=== PATIENT | female | born 1960 | race Two or more races ===

== ENCOUNTER 2024-04-16 13:51 | Emergency (ER) | payer OTHER, SELFPAY ==
--- NOTE | ~2024-04-16 | XR_ITS ---
EXAMINATION: X-ray bilateral knees CLINICAL INFORMATION: Fall COMPARISON: None TECHNIQUE: Left knee 4 views. Right knee 4 views. FINDINGS: Left knee: Alignment is anatomic. Joint spaces are maintained. No visible acute fracture or dislocation. No significant effusion. No suspicious soft tissue calcification. Right knee: Alignment is anatomic. Joint spaces are maintained. No visible acute fracture or dislocation. No significant effusion. No suspicious soft tissue calcification. XR/XR knee RT 4V IMPRESSION: No radiographic evidence of acute fracture or malalignment.
--- NOTE | ~2024-04-16 | XR_ITS ---
EXAMINATION: X-ray bilateral knees CLINICAL INFORMATION: Fall COMPARISON: None TECHNIQUE: Left knee 4 views. Right knee 4 views. FINDINGS: Left knee: Alignment is anatomic. Joint spaces are maintained. No visible acute fracture or dislocation. No significant effusion. No suspicious soft tissue calcification. Right knee: Alignment is anatomic. Joint spaces are maintained. No visible acute fracture or dislocation. No significant effusion. No suspicious soft tissue calcification. XR/XR knee LT 4V IMPRESSION: No radiographic evidence of acute fracture or malalignment.
--- NOTE | ~2024-04-16 | XR_ITS ---
EXAMINATION: XR WRIST, RIGHT CLINICAL INFORMATION: Fall. COMPARISON: None available. TECHNIQUE: Three views of the right wrist. FINDINGS: There is a small chronic osseous fragment at the tip of the ulnar styloid. No fracture. Alignment is anatomic with normal joint spaces. No erosions or abnormal soft tissue calcifications. XR/XR wrist RT min 3V IMPRESSION: No acute fracture or malalignment.
--- NOTE | ~2024-04-16 | CT_ITS ---
EXAMINATION: CT HEAD WITHOUT CONTRAST CLINICAL INFORMATION: Fall. Head strike. COMPARISON: None available. TECHNIQUE: Contiguous axial imaging was performed from the skull base to vertex without intravenous administration of contrast. This CT examination was performed using dose optimization techniques as appropriate, variously including the following: *Automated exposure control *Adjustment of mA and/or kV according to patient size (this includes techniques or standardized protocols for targeted exams where dose is matched to indication/reason for exam; i.e. extremities or head) *Use of iterative reconstruction technique DLP: 718 mGy-cm FINDINGS: There is no evidence of acute intracranial hemorrhage or territorial infarction. No abnormal mass-effect or midline shift is seen. Wills to white matter differentiation is well preserved. No extra axial fluid collections. The ventricles are normal in size and configuration. There is no abnormal attenuation within the brain parenchyma. Minimal focal soft tissue swelling over the left supraorbital frontal bone. The soft tissues and osseous structures are otherwise normal. The sinuses and mastoid air cells are clear. CT/CT head/brain wo IV con IMPRESSION: No acute intracranial pathology. Minimal focal soft tissue swelling over the left supra orbital frontal calvarium. No fractures.
[2024-04-16 14:05] VITALS: BP 122/76; BP 128/70; PULSE 76; PULSE 78; RESP 18; TEMP 36.7; O2SAT 97; O2SAT 98; BMI 23.8
--- OUTSIDE RECORDS SUMMARY | 2024-04-16 14:23 | XMS_ITS | Continuity of Care Document ---
Author Organization [facility] Address [address] [place] [address]- Care Team Providers Care Sorting Grapple Operator Name Role Phone Reva Mix Primary Care Physician [phone] [facility] [id number] Date(s): 03/05/23 - 04/04/23 [facility] [address] [place], [place] [address] Attending Physician: Rin Norman Admitting Physician: Rin Norman Referring Physician: AdmtrRin Allergies, Adverse Reactions, Alerts Substance Reaction Severity Status predniSONE Active Medications Albuterol 0.083% Inhalation Solution Refills 0, Maintenance, 07/16/17 13:13:20 Start Date: 07/16/17 Status: Ordered amitriptyline 10 mg oral tablet 1 tablet = 10 mg, By Mouth, Daily at bedtime, 0 Refills, Maintenance Start Date: 10/07/12 Status: Ordered Flonase 50 mcg/inh nasal spray 1 sprays, Nares, Both, 2 times a day, # 16 Gm, 0 Refills, Maintenance, [place] Start Date: 02/02/13 Status: Ordered Flonase 50 mcg/inh nasal spray 1 sprays, Nares, Both, 2 times a day, # 16 Gm, 0 Refills, Maintenance, 05/27/18 15:29:38 EDT, [place] Start Date: 05/27/18 Status: Ordered melatonin 5 mg oral tablet 1 tablet = 5 mg, By Mouth, Daily at bedtime, PRN for insomnia, # 60 tablet, 0 Refills, Maintenance,09/16/16 14:09:46, Tablet Start Date: 09/16/16 Status: Ordered omeprazole 20 mg oral delayed release tablet 1 tablet = 20 mg, By Mouth, Daily, # 30 tablet, 0 Refills, Maintenance, 08/05/16 19:29:52, EC Tablet Start Date: 08/05/16 Status: Ordered ZyrTEC 10 mg oral tablet 1 tablet = 10 mg, By Mouth, Daily, 0 Refills, Maintenance, 10/22/17 15:16:48 Start Date: 10/22/17 Status: Ordered Social History Social History Type Response Smoking Status Never smoker entered on: 10/22/17 Sex Patient Care team information Care Team Personnel Name: Reva Mix Position: S Associate Professional Member Role: PCP Address: Address: [address] [place] [address] Care Team Related Persons Name: BROWN BRITO Address: home [address] [facility] [address] [place] [id number] Name: JOSE CRUZ ARMENTA Name: SHAMAR HEREDIA Address: home [address] [place] [address]
--- OUTSIDE RECORDS SUMMARY | 2024-04-16 14:23 | XMS_ITS | Continuity of Care Document ---
Author Organization [facility] Address [address] [place] [address]- Care Team Providers Care Motor Coach Driver Name Role Phone Reva Mix Primary Care Physician [phone] Encounter [facility] [id number] Date(s): 08/30/21 - 12/28/21 [facility] [address] [place] [address]- Attending Physician: Migel Stewart MD Admitting Physician: Migel Stewart MD Referring Physician: Reva Mix Allergies, Adverse Reactions, Alerts Substance Reaction Severity [...] day, # 16 Gm, 0 Refills, Maintenance, [place] Start Date: 02/02/13 Status: Ordered Flonase 50 mcg/inh nasal spray 1 sprays, Nares, Both, 2 times a day, # 16 Gm, 0 Refills, Maintenance, 05/27/18 15:29:38 EDT, [place] Start Date: 05/27/18 Status: Ordered melatonin 5 [...]
--- OUTSIDE RECORDS SUMMARY | 2024-04-16 14:23 | XMS_ITS | Continuity of Care Document ---
Author Organization [facility] Address [address] [place] [address]- Care Team Providers Care Web Production Designer Name Role Phone Reva Mix Primary Care Physician [phone] [id number] Date(s): 03/05/23 - 03/12/23 [facility] [address] [place], [place] [address] Attending Physician: Chauncey Ramos MD Referring Physician: Reva Mix Allergies, Adverse [...] day, # 16 Gm, 0 Refills, Maintenance, [place] Start Date: 02/02/13 Status: Ordered Flonase 50 mcg/inh nasal spray 1 sprays, Nares, Both, 2 times a day, # 16 Gm, 0 Refills, Maintenance, 05/27/18 15:29:38 EDT, [place] Start Date: 05/27/18 Status: Ordered melatonin 5 [...] 10/22/17 15:16:48 Start Date: 10/22/17 Status: Ordered Vital Signs Most recent to oldest [Reference Range]: 1 Height 173 cm (03/05/23 2:34 PM) Oxygen Saturation [94-100 %] 99 % (03/05/23 2:34 PM) Pulse Rate [55-90 bpm] 75 bpm (03/05/23 2:34 PM) Blood Pressure [90-138/55-84 mm Hg] 131/ 74mm Hg (03/05/23 2:34 PM) Respiratory Rate [16-30 br/min] 20 br/mi n (03/05/23 2:34 PM) Temperature [96.8-100.4 DegF] 97.2 DegF (03/05/23 2:34 PM) Mode of Delivery (Oxygen) Room air (03/05/23 2:34 PM) Blood pressure sites Arm, left (03/05/23 2:34 PM) Temperature Route Temporal (03/05/23 2:34 PM) Social History Social History Type Response Smoking Status Never smoker entered on: 10/22/17 Sex Note * Emi Squires: PERFORM, SIGN, VERIFY Event Display: Patient Education/Instruction Authored Date: [id number] [facility] *[facility] Clinical Summary Name RAMÍREZ SOTO Age 62 Years 1960 PCP Reva Mix PCP Visit Date 03/05/2023 13:28:00 Additional Instructions: Scheduled Appointments?? Future Appointments ?No Future Appointments Scheduled Follow-Up Instructions ?? Diagnosis Medications: Please continue your medications until treatment is completed or stopped by your provider. Discuss any questions related to medications with your provider. Medications to Continue with No Changes These medications were not printed or sent to your pharmacy Albuterol (Albuterol 0.083% Inhalation Solution) Next Dose: amiTRIPTYLINE (amitriptyline 10 mg oral tablet) 1 tab(s) Oral Daily at Bedtime. Next Dose: Cetirizine (ZyrTEC 10 mg oral tablet) 1 tab(s) Oral Daily. Next Dose: Fluticasone Nasal (Flonase 50 mcg/inh nasal spray) 1 spray(s) Nares, Both twice a day. Refills: 0. Next Dose: Fluticasone Nasal (Flonase 50 mcg/inh nasal spray) 1 spray(s) Nares, Both twice a day. Refills: 0. Next Dose: Melatonin (melatonin 5 mg oral tablet) 1 tab(s) Oral Daily at Bedtime as needed for insomnia. Next Dose: Omeprazole (omeprazole 20 mg oral delayed release tablet) 1 tab(s) Oral Daily. Refills: 0. Next Dose: Allergy Info:?? predniSONE Medications Given This Visit Future Orders ?No future orders Vital Signs Height 173 cm Weight BMI Blood Pressure 131 mm Hg/74 mm Hg Temperature 97.2 DegF Pulse Rate 75 bpm Respiratory Rate 20 br/min 02 Sat Mode of Delivery 99 %/Room air You can now view a summary of your hospital visit from the comfort of your home through a free online portal called [employer] (formerly known as Local[employer]). [employer] (formerly known as Local[employer]) is a website that allows you to securely view your medical information including discharge summary, medications and follow-up visits. ??You can alsosend a secure electronic message to your doctor???s office to request appointments, renew medications or just ask a question. You can enroll at [email or web address] or register during your next office visit. Disclaimer:?? The information provided is of a general nature and is intended to be used in conjunction with the recommendations and advice of your health care practitioner. ??Every effort has been made to ensure that the information provided is accurate and complete at the time it is provided to you however, as your needs change, or, as new ??information becomes available, different or additional instructions may be required. If you have questions, please consult with your primary care provider or pharmacist, as appropriate. ??This information is not intended to serve as substitution for assessment and evaluation by a qualified health care provider. If you do not have a primary care provider, you may find a [facility] provider by calling [facility] at [phone]. For information about the plan of care including goals and instructions for your diagnosis, please see the patient education orders section of this document. Patient Education Materials?? The content of this educational material or handout may have been modified, supplemented, or adapted from its original content and format to support your individualized medical care. Patient Care team information Care Team Personnel Name: Reva Mix Position: [facility] Associate Professional Member Role: PCP Address: Address: [address] [place] [address]- Care Team Related Persons Name: BROWN BRITO Address: home [address] [facility] [address] [place] [address] Name: JOSE CRUZ ARMENTA Name: SHAMAR HEREDIA Address: home [address] [place] [address]
--- OUTSIDE RECORDS SUMMARY | 2024-04-16 14:23 | XMS_ITS | Continuity of Care Document ---
Author Organization [facility] Address [address] [place] [address]- Care Team Providers Care Viscose Cellar Charge Hand Name Role Phone Reva Mix Primary Care Physician [facility] [id number] Date(s): 12/03/22 - 01/02/23 [facility] [address] [place] [address]- Attending Physician: Rin Norman Admitting Physician: Rin Norman Referring Physician: Rin Norman Allergies, Adverse Reactions, Alerts Substance Reaction Severity [...] day, # 16 Gm, 0 Refills, Maintenance, [place] Start Date: 02/02/13 Status: Ordered Flonase 50 mcg/inh nasal spray 1 sprays, Nares, Both, 2 times a day, # 16 Gm, 0 Refills, Maintenance, 05/27/18 15:29:38 EDT, [place] Start Date: 05/27/18 Status: Ordered melatonin 5 [...] Associate Professional Member Role: PCP Address: Address: [address] [place] [address]- Care Team Related Persons Name: BROWN BRITO Address: home [address] [place], [place] [id number] [place] [address] Name: JOSE CRUZ ARMENTA Name: SHAMAR HEREDIA Address: home [address] [place] [address]
--- OUTSIDE RECORDS SUMMARY | 2024-04-16 14:23 | XMS_ITS | Continuity of Care Document ---
Author Organization [facility] Address [address] [place] [address]- Care Team Providers Care Defence Intelligence Analyst Name Role Phone Reva Mix Primary Care Physician Encounter [facility] [id number] Date(s): 12/06/21 - 04/05/22 [facility] [address] [place] [address]- Attending Physician: Ulises Alonzo MD Admitting Physician: Ulises Alonzo MD Referring Physician: Reva Mix Allergies, Adverse [...] day, # 16 Gm, 0 Refills, Maintenance, [place] Start Date: 02/02/13 Status: Ordered Flonase 50 mcg/inh nasal spray 1 sprays, Nares, Both, 2 times a day, # 16 Gm, 0 Refills, Maintenance, 05/27/18 15:29:38 EDT, [place] Start Date: 05/27/18 Status: Ordered melatonin 5 [...]
[2024-04-16] MEDS: Acetaminophen 325 MG TABLET 975 MG PO (15:02)
--- NOTE | 2024-04-16 15:56 | ED.FALL ---
HPI - Fall General Chief Complaint: Fall Stated Complaint: FALL,+HS,BILAT KNEE PAIN,+COLLAR PER EMS Time Seen by Provider: 04/16/24 14:15 Source: patient, family, EMS and old records reviewed Mode of arrival: EMS Limitations: no limitations History of Present Illness ED Provider: DON HPI Narrative: 63 yo female with no sig PMH not on thinners here with c/o trip and fall did hit head has no neck pain no radicular symptoms landed on forehead and both wrists/knees. Denies other injury, no LOC, not vomiting. here with family. MD complaint: fall Onset (ago): minute(s) (ASSOCIATE DIRECTOR FINANCE) Fall from: standing Fall witnessed: yes, by bystander Place fall occurred: street Loss of consciousness: none Prolonged down time: no Symptoms prior to fall: none Context: tripped/slipped Location of injury: head Location of injury - extremities: right: hand and bilateral: knee Severity: mild Quality: dull Associated symptoms (after fall): denies Related Data Allergies Allergy/AdvReac Type Severity Reaction Status Date / Time prednisone Allergy Intermediate Stomach Verified 04/16/24 14:12 Upset Review of Systems Review of Systems: Constitutional : No Fever, No Chills ENT/Mouth : No Ear Pain, No Hoarseness, No sore throat Eyes: No Eye Pain, No Swelling, No Redness, No Foreign Body Cardiovascular : No Chest Pain, No SOB Respiratory : No Cough, No Dyspnea Gastrointestinal : No Nausea, No Vomiting, No Diarrhea, No abdominal Pain Genitourinary : No Dysuria, No Hematuria Musculoskeletal : positive joint pain, No Myalgias, No Joint Swelling Skin : No Skin lacerations, No rash, pos abrasions Neuro : No Weakness, No Numbness, No Loss of Consciousness, No Dizziness, No Headache Psych : No Anxiety/Panic, No Depression All other systems reviewed and are negative PMFSH Past Medical History Attestation statement: The following information was validated with the patient. Source: old records reviewed Medical History Anxiety Social History Social History Smoked in Last 30 Days: No Use of substances other than those prescribed or required for medical reasons: No Advance Directives: No Advance Directives Information Provided: Yes Do you have a plan to hurt others: No Plan Physical Exam Vital Signs: Vital Signs: Last Vital Signs Temp 98.0 F 04/16/24 14:05 Pulse 76 04/16/24 14:05 Resp 18 04/16/24 14:05 BP 122/76 04/16/24 14:05 Pulse Ox 98 04/16/24 14:05 O2 Del Method Room Air 04/16/24 14:05 BMI result Body Mass Index 23.8 Appearance: Alert. Oriented X3. No acute distress. Eyes: Pupils equal, round and reactive to light. ENT: Pharynx normal. contusion L upper forehead Neck: Normal inspection. Neck supple. no midline ttp no radicular symptoms collar removed CVS: Normal heart rate and rhythm. Pulses normal. Chest: atraumatic Respiratory: No respiratory distress. Breath sounds normal. Abdomen: Soft and non-tender. Skin: Skin warm and dry. Normal skin color. Normal skin turgor. Extremities: No lower extremity edema. R wrist contusion and both knees contusion distal NV intact Neuro: Oriented X 3. No motor deficit. No sensory deficit. Medications Administered Discontinued Medications Generic Name Dose Route Start Last Admin Trade Name Freq PRN Reason Stop Dose Admin Acetaminophen 975 mg 04/16/24 14:33 04/16/24 15:02 Acetaminophen 325 Mg Tablet PO 04/16/24 14:34 975 mg ONCE ONE Administration Medical Decision Making Medical Decision Making MDM Narrative: 63 yo female not on thinners trip and fall at mall no LOC she c/o hitting head has neck pain and c/o knee pain, R wrist pain, she is GCS 15 at this time xrays of both knees and R wrist - CT head. Has no midline ttp to suggest cervical spine fracture. Differential Diagnosis Differential Diagnoses: The differential diagnosis associated with the presentation includes head injury, contusions, abrasion no midline ttp to neck no radicular symptoms no neck pain doubt cervical spine fracture Admission/Observation Consideration of admission/observation: Escalation of care including admission/observation considered GCS 15 stable for DC Independent Interpretation I performed an independent interpretation of an: Plain X-Ray (no fracture) and CT Scan (no ICH) Radiology Impression Discussion of test interpretation with radiology: I have reviewed the radiologist's reading. Independent Historian Clinical information obtained from an independent historian. History obtained from or confirmed by: EMS and Other (daughter) Prescription Management I considered prescription management with: Other Discharge Plan Discharge Clinical Impression: Head injury Qualifiers: Encounter type: initial encounter Qualified Code(s): S09.90XA - Unspecified injury of head, initial encounter Contusion Qualifiers: Encounter type: initial encounter Contusion area: wrist Laterality: right Qualified Code(s): S60.211A - Contusion of right wrist, initial encounter Abrasion of knee Qualifiers: Encounter type: initial encounter Laterality: unspecified laterality Qualified Code(s): S80.219A - Abrasion, unspecified knee, initial encounter Patient Disposition: Home, Self-Care Instructions: Abrasion (ED), Head Injury (ED), Contusion in Adults (ED) Additional Instructions: return for worsening pain , confusion, vomiting, or any other concerns take motrin or tylenol as needed for pain no broken bones on xray and CT scan of head is normal Print Language: Serbian
[2024-04-16 16:11] VITALS: BP 118/73; PULSE 68; RESP 16; TEMP 36.7; O2SAT 98
[2024-04-16 16:24] VITALS: BP 118/73; PULSE 68; RESP 16; TEMP 36.7; O2SAT 98
== END 2024-04-16 16:25 | disposition home or self-care (01) ==
PROVIDERS: Emergency Provider Emergency Medicine; PCP Physician Assistant
DX: S09.90XA Unspecified injury of head, initial encounter (principal); S00.83XA Contusion of other part of head, initial encounter; S60.211A Contusion of right wrist, initial encounter; S80.212A Abrasion, left knee, initial encounter; S80.211A Abrasion, right knee, initial encounter; W01.0XXA Fall on same level from slipping, tripping and stumbling without subsequent striking against object, initial encounter; Y93.01 Activity, walking, marching and hiking; Y92.59 Other trade areas as the place of occurrence of the external cause; Y99.9 Unspecified external cause status
CPT/HCPCS: 70450; 73110; 73564; 99284